=== PATIENT | male | born 1995 | race Hispanic/Latino ===

== ENCOUNTER 2020-01-15 18:09 | Emergency (ER) | payer OTHER ==
[~2020-01-15] VITALS: Ht 175.3 cm; Wt 102.1 kg
[2020-01-15] MEDS ORDERED: SODIUM CHLORIDE 0.9% 1000ML 1,000 ML IV STA ×2 (19:08→19:10)
[2020-01-15] MEDS ORDERED: ONDANSETRON HCL INJ 2MG/ML 2ML 2 MG/ML VIAL IV NR (19:15)
[2020-01-15] MEDS ORDERED: SODIUM CHLORIDE FLUSH 10 ML SYR INJ PRN (19:15)
--- OUTSIDE RECORDS SUMMARY | 2020-01-15 19:35 | XMS REPORT | Continuity of Care Document ---
Author Author [facility] Organization [facility] Address [address] [place] [address] Phone Unavailable Care Team Providers Care Early Years Teacher Name Role Phone Unavailable Unavailable Problems This patient has no known problems. Allergies, Adverse Reactions, Alerts This patient has no known allergies or adverse reactions. Medications This patient has no known medications. Procedures This patient has no known procedures. Encounters Start Date/Time End Date/Time Encounter Type Admission Type [facility] Care Department Encounter ID Source 2019-07-03 22:00:00 2019-07-03 22:00:00 Emergency [facility] [place] [id number] [facility] Results This patient has no known results.
[2020-01-15] MEDS ORDERED: SODIUM CHLORIDE 0.9% 1000ML 1,000 ML ONE ×2 (19:59→20:28)
[2020-01-15] MEDS ORDERED: ONDANSETRON HCL INJ 2MG/ML 2ML 2 MG/ML VIAL ONE (19:59)
[2020-01-15] MEDS ORDERED: HYDRALAZINE HCL 20 MG/ML VIAL IV NR (20:00)
[2020-01-15] MEDS ORDERED: MECLIZINE HCL25 MG PO (21:41)
[2020-01-15] MEDS ORDERED: ONDANSETRON ODT8 MG PO (21:41)
--- NOTE | 2020-01-15 21:42 | Emergency Department Note ---
History of Present Illnes History of Present Illness Chief Complaint: n/v History of Present Illness This is a 24 year old male. was doing well until 1 day ago room spining/lightheadedness which has resolved, then n/v x 20 times Historian: Patient Arrival Mode: Car History limited by: condition of the patient Veterinarian Helper Required: No Onset (how long ago): day(s) (1) Location: none Quality: n/a Radiation: Reports non-radiation Severity: moderate Onset quality: gradual Timing of current episode: intermittent Progression: unchanged Chronicity: new Context: Denies recent illness, Denies recent surgery, Denies recent immobilization, Denies recent travel, Denies trauma/injury, Denies new medications, Denies hx of DVT/PE, Denies non-compliance w/ medications, Denies other Relieving factors: none Exacerbating factors: none Associated symptoms: Reports nausea/vomiting Treatments prior to arrival: none Past Medical/Family History Physician Review I have reviewed the patient's past medical and family history. Any updates have been documented here. Past Medical History Recent Fever: No Clinical Suspicion of Infectio: No New/Unexplained Change in Ment: No Past Medical History: None Past Surgical History: None Social History Smoking Cessation: Never Smoker Counseling Performed: No Alcohol Use: Occasional Any Illegal Drug Use: No Physically hurt or threatened: No Other Any Pre-Existing Lines (PICC,: No Review of Systems Review of Systems Constitutional: Reports no symptoms EENTM: Reports no symptoms Cardiovascular: Reports no symptoms Respiratory: Reports no symptoms Gastrointestinal: Reports as per HPI Genitourinary: Reports no symptoms Musculoskeletal: Reports no symptoms Integumentary: Reports no symptoms Neurological: Reports as per HPI, Reports other (room spinning) Psychological: Reports no symptoms Endocrine: Reports no symptoms Hematological/Lymphatic: Reports no symptoms Review of other systems: All other systems negative Physical Exam Related Data Allergies: Coded Allergies: No Known Allergies (Unverified , 01/15/20) Triage Vital Signs Vital Signs Date Time Temp Pulse Resp B/P (MAP) Pulse Ox O2 Delivery O2 Flow Rate FiO2 01/15/20 18:55 97.7 97 18 180/104 Vital signs reviewed: Yes Physical Exam CONSTITUTIONAL Constitutional: Present well-developed, Present well-nourished HENT HENT: Present normocephalic, Present atraumatic, Present nose normal, Present other (dry mm) HENT L/R: Present left ext ear normal, Present right ext ear normal, Present other (+fatigueable horizontal nystagmus) EYES Eyes: Reports PERRL, Reports conjunctivae normal NECK Neck: Present ROM normal PULMONARY Pulmonary: Present effort normal, Present breath sounds normal CARDIOVASCULAR Cardiovascular: Present regular rhythm, Present heart sounds normal, Present capillary refill normal, Present normal rate GASTROINTESTINAL Abdominal: Present soft, Present nontender, Present bowel sounds normal GENITOURINARY Genitourinary: Present exam deferred SKIN Skin: Present warm, Present dry MUSCULOSKELETAL Musculoskeletal: Present ROM normal NEUROLOGICAL Neurological: Present alert, Present oriented x 3, Present no gross motor or sensory deficits PSYCHOLOGICAL Psychological: Present mood/affect normal, Present judgement normal Results Laboratory Lab results reviewed: Yes (bmp/lfts normal) Assessment & Plan Medical Decision Making MDM see below Assessment & Plan Final Impression: (1) Nausea & vomiting (2) Dehydration (3) Vertigo (4) Hypertension Depart Disposition: HOME, SELF-CARE Last Vital Signs Date Time Temp Pulse Resp B/P (MAP) Pulse Ox O2 Delivery O2 Flow Rate FiO2 01/15/20 20:50 112/71 01/15/20 18:55 97.7 97 18 Home Meds Active Scripts Meclizine Hcl (MECLIZINE HCL) 25 Mg Tablet, 25 MG PO Q8H PRN for DIZZINESS, #20 TAB 1 Refill prn dizziness, spinning Prov:PRASANNA ROSADO 01/15/20 Ondansetron (ONDANSETRON ODT) 8 Mg Tab.rapdis, 4 MG PO Q4HR PRN for NAUSEA AND VOMITING, #30 1 Refill Prov:PRASANNA ROSADO 01/15/20 Medications in the ED Sodium Chloride 10 ml PRN PRN INJ IV SITE FLUSH; Start 01/15/20 at 19:15; Stop 02/14/20 at 19:14 Ondansetron HCl 8 mg NOW IV Last administered on 01/15/20at 20:05; Admin Dose 8 MG; Start 01/15/20 at 19:15; Stop 01/15/20 at 20:59; Status DC Sodium Chloride 1,000 ml @ 1,000 mls/hr Q1H STAT IV Last administered on 01/15/20at 20:45; Admin Dose 1,000 MLS/HR; Start 01/15/20 at 19:08; Stop 01/15/20 at 20:07; Status DC Sodium Chloride 1,000 ml @ 1,000 mls/hr Q1H STAT IV Last administered on 01/15/20at 20:05; Admin Dose 1,000 MLS/HR; Start 01/15/20 at 19:10; Stop 01/15/20 at 20:09; Status DC Hydralazine HCl 20 mg NOW IV ; Start 01/15/20 at 20:00; Stop 01/15/20 at 21:00; Status DC Ondansetron HCl 8 mg STK-MED ONCE .ROUTE ; Start 01/15/20 at 19:59; Stop 01/15/20 at 19:53; Status DC Sodium Chloride 1,000 ml @ ud STK-MED ONCE .ROUTE ; Start 01/15/20 at 19:59; Stop 01/15/20 at 19:53; Status DC Sodium Chloride 1,000 ml @ ud STK-MED ONCE .ROUTE ; Start 01/15/20 at 20:28; Stop 01/15/20 at 20:24; Status DC PRASANNA ROSADO Jan 15, 2020 21:42
[2020-01-15 21:53] VITALS: BP 150/71
== END 2020-01-15 21:52 | disposition home or self-care (01) ==
LOC: FSED 18:50
DX: R42 Dizziness and giddiness (principal); R11.2 Nausea with vomiting, unspecified; E86.0 Dehydration; I10 Essential (primary) hypertension
CPT/HCPCS: 99283; J2405; J7030

== ENCOUNTER 2024-01-13 16:38 | Emergency (ER) | payer BC, OTHER ==
[~2024-01-13] VITALS: Ht 177.8 cm; Wt 102.1 kg
[~2024-01-13 16:38] MED LIST: MECLIZINE HCL25 MG PO; ONDANSETRON ODT8 MG PO
[2024-01-13 17:07] VITALS: TEMP 98
[2024-01-13] MEDS: FAMOTIDINE 20 MG/2 ML VIAL IV STA (17:48)
[2024-01-13] MEDS: SODIUM CHLORIDE 0.9% 1000ML 1,000 ML IV ONE ×2 (17:48→19:07)
[2024-01-13] MEDS: ONDANSETRON HCL INJ 2MG/ML 2ML 2 MG/ML VIAL IV STA (17:48)
[2024-01-13 19:09] VITALS: PULSE 88; RESP 18
[2024-01-13] MEDS ORDERED: BACTRIM DS TAB1 EACH PO (21:10)
[2024-01-13] MEDS ORDERED: ACIDOPHILUS1 EAC1 PO (21:10)
[2024-01-13] MEDS ORDERED: PEPCID20 MG PO (21:11)
[2024-01-13] MEDS ORDERED: ONDANSETRON ODT4 MG PO (21:11)
[2024-01-13 21:12] VITALS: BP 143/93; PULSE 90; RESP 18; TEMP 98.8; O2SAT 99
== END 2024-01-13 21:21 | disposition home or self-care (01) ==
LOC: FSED 16:41
DX: R11.2 Nausea with vomiting, unspecified (principal); E86.0 Dehydration; R19.7 Diarrhea, unspecified; R94.4 Abnormal results of kidney function studies
CPT/HCPCS: 99283; J2405; J7030

== ENCOUNTER 2024-02-07 21:04 | Emergency (ER) | payer BC ==
[~2024-02-07] VITALS: Ht 177.8 cm; Wt 102.1 kg
[~2024-02-07 21:04] MED LIST changes: +ACIDOPHILUS1 EAC1 PO; +BACTRIM DS TAB1 EACH PO; +ONDANSETRON ODT4 MG PO; +PEPCID20 MG PO
[2024-02-07 21:05] VITALS: PULSE 79; RESP 18; TEMP 98.5
[2024-02-07] MEDS ORDERED: ONDANSETRON HCL 4 MG ORAL DISINTEGRATING TAB PO PRN (21:45)
[2024-02-07 22:51] LABS: INR 0.9; PROTHROMBIN TIME 12.6 seconds (11.9-14.5)
[2024-02-07 22:52] LABS: PARTIAL THROMBOPLASTIN TIME 27.1 seconds (23.8-35.5)
[2024-02-08] MEDS ORDERED: CYCLOBENZAPRINE5 MG PO (00:56)
[2024-02-08 01:09] VITALS: BP 169/100; PULSE 76; RESP 18; TEMP 98.6; O2SAT 97
== END 2024-02-08 01:09 | disposition home or self-care (01) ==
LOC: FSED 21:09
DX: M54.50 Low back pain, unspecified (principal); R11.0 Nausea; R53.81 Other malaise; X50.0XXA Overexertion from strenuous movement or load, initial encounter; K57.90 Diverticulosis of intestine, part unspecified, without perforation or abscess without bleeding; F17.210 Nicotine dependence, cigarettes, uncomplicated
CPT/HCPCS: 36415; 74176; 80053; 81003; 85025; 85610; 85730; 99283

== ENCOUNTER 2025-02-28 06:10 | Emergency (ER) | payer BC ==
[~2025-02-28] VITALS: Ht 180.3 cm; Wt 104.3 kg
[~2025-02-28 06:10] MED LIST changes: +CYCLOBENZAPRINE5 MG PO
[2025-02-28] MEDS ORDERED: SODIUM CHLORIDE 0.9% 1000ML 1,000 ML ONE (06:41)
[2025-02-28] MEDS: SODIUM CHLORIDE 0.9% 1000ML 1,000 ML IV SCH (06:45)
[2025-02-28] MEDS: ONDANSETRON HCL INJ 2MG/ML 2ML 2 MG/ML VIAL IV STA (06:46)
[2025-02-28] MEDS: FAMOTIDINE 20 MG/2 ML VIAL IV STA (06:46)
[2025-02-28] MEDS: ACETAMINOPHEN 325 MG TAB PO ONE (07:49)
[2025-02-28] MEDS ORDERED: FIORICET 50-301 EACH PO (08:43)
[2025-02-28] MEDS ORDERED: OLMESARTAN-HCT1 EACH PO (08:44)
[2025-02-28 08:55] VITALS: PULSE 87; RESP 20; TEMP 98.3
[2025-02-28 09:08] VITALS: BP 140/88; PULSE 87; RESP 20; TEMP 98.3; O2SAT 96
== END 2025-02-28 08:59 | disposition home or self-care (01) ==
LOC: FSED 06:26
DX: R51.9 Headache, unspecified (principal); I10 Essential (primary) hypertension; R11.2 Nausea with vomiting, unspecified; Z11.52 Encounter for screening for COVID-19; Z87.19 Personal history of other diseases of the digestive system
CPT/HCPCS: 0223U; 70450; 80053; 80307; 81003; 83518; 85025; 87400; 99283; J1308; J2405; J7030